=== PATIENT | female | born 1940 | race Caucasian/White ===

== ENCOUNTER 2018-02-08 18:26 | Emergency (ER) | END 2018-02-09 | disposition home or self-care (01) ==

== ENCOUNTER 2019-02-12 18:23 | Emergency (ER) | payer OTHER ==
[~2019-02-12] VITALS: Ht 154.9 cm; Wt 70.0 kg
[2019-02-12 18:44] VITALS: Ht 154.9 cm; Wt 70.0 kg
--- NOTE | 2019-02-12 19:20 | ERD ---
ER Documentation Chief Complaint Chief Complaint RIGHT FOOT WOUND CHECK HPI 78-year-old woman brought in by private ambulance from [facility] facility for evaluation of superficial ulcer to the dorsal aspect of the right foot, this is a chronic nonpressure ulcer that is being managed by her air conditioning manager BERNARD Abreu. Patient reports no new symptoms, she denies pain, no fevers or chills, no discharge from the foot. Patient has no pain ambulating. Patient was transported here without further complications ROS All systems reviewed and are negative except as per history of present illness. 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 History of Surgery: Yes (RT FOOT, Removal of ovary) Hx Cardiac Disorders: Yes (HTN) Hx Miscellaneous Medical Probl: Yes (DEMENTIA, DM, INCONTINENCE) Hx Alcohol Use: No Hx Substance Use: No Hx Tobacco Use: No Smoking Status: Never smoker FmHx Family History: No diabetes Physical Exam Vitals Vital Signs Date Temp Pulse Resp B/P (MAP) Pulse Ox O2 O2 Flow FiO2 Time Delivery Rate 02/12/19 98.1 76 14 146/76 100 Room Air 19:07 (99) 02/12/19 98.1 95 20 168/81 100 Room Air 18:44 (110) 02/12/19 98.1 90 20 168/81 100 18:44 (110) Physical Exam GENERAL: Well-developed, well-nourished, well-hydrated, in no apparent distress, looks nontoxic in appearance, afebrile HEENT: Moist mucous membranes, pink conjunctiva, no cervical spine tenderness or step-off deformities, no goiter. SKIN: Warm and dry to touch, small open wound to the dorsal aspect of the right foot near the navicular bone with red granulation tissue present, nontender to touch, no discharge, no malodor, no surrounding skin erythema or induration. EXTREMITIES: No clubbing cyanosis or edema, calves are bilaterally symmetrical, no Homans sign, no popliteal cord sign. Distal pulses equal and bilateral Results 24 hrs Laboratory Tests Test 02/12/19 18:42 POC Venous Lactate 2.2 mmol/L Procedures/MDM Site was fully inspected by me and we wrapped with dry gauze dressing. The ulcer itself appears healing and appears clean. Patient will be discharged for regular follow-up with her primary care physician and air conditioning manager. Patient feels much better at this time, and vital signs are normal, symptoms have improved. I did give strict instructions to return to the ED if symptoms continue or worsen, patient will otherwise follow-up with primary care physician. Patient understood instructions and agreed to plan. Disclaimer: Inadvertent spelling and grammatical errors are likely due to EHR/dictation software use and do not reflect on the overall quality of patient care. Also, please note that the electronic time recorded on this note does not necessarily reflect the actual time of the patient encounter. Departure Diagnosis: Primary Impression: Encounter for wound re-check Additional Impression: Non-pressure chronic ulcer of other part of right foot with fat layer exposed Condition: ZEINA Aguayo MD Feb 12, 2019 19:20
[2019-02-12] MEDS ORDERED: MUPI22OI2 TOP (19:21)
[2019-02-12 22:07] VITALS: BP 144/67; PULSE 80; RESP 14
== END 2019-02-12 22:30 | disposition home or self-care (01) ==
LOC: E/R 18:23
DX: L97.512 Non-pressure chronic ulcer of other part of right foot with fat layer exposed (principal); E11.9 Type 2 diabetes mellitus without complications; I10 Essential (primary) hypertension; E66.9 Obesity, unspecified; Z48.01 Encounter for change or removal of surgical wound dressing; Z68.29 Body mass index [BMI] 29.0-29.9, adult
CPT/HCPCS: 83605; Z7502; 99283